=== PATIENT | female | born 1985 | race African-American/Black ===

== ENCOUNTER 2022-06-07 01:15 | Inpatient (IN) | payer OTHER ==
[2022-06-07] MEDS: DEXTROSE 5%-LACTATED RINGERS 1,000 ML IV SCH ×2 (02:00→09:06)
[2022-06-07] MEDS ORDERED: AMPICILLIN SODIUM 2 GM VIAL ONE (02:13)
[2022-06-07] MEDS ORDERED: AMPICILLIN - 2 GM in SODIUM CHLORIDE 100 ML IVPB ONE (02:19)
[2022-06-07 02:32] LABS: INR 1.15 (0.83-1.09); PROTHROMBIN TIME (PATIENT) 13.2 SEC (9.7-13.0)
[2022-06-07 02:35] LABS: ACTIVATED PTT 31.9 SECONDS (25.2-36.5)
[2022-06-07 02:39] LABS: BASO % 0.2 % (0-2.0); EOS % 0.8 % (0-4.5); HEMATOCRIT 31.6 % (32.4-45.2); HEMOGLOBIN 10.2 GM/dL (10.7-15.3); LYMPH % 20.5 % (8-40); MCH 22.8 pg (25.7-33.7); MCHC 32.2 g/dl (32.0-36.0); MEAN CELL VOLUME 70.9 fl (80-96); MEAN PLT VOLUME 7.3 fl (7.5-11.1); MONO % 9.3 % (3.8-10.2); NEUT % 69.2 % (42.8-82.8); PLATELET COUNT 397 10^3/uL (134-434); RBC 4.46 M/mm3 (3.60-5.2); RDW 15.4 % (11.6-15.6); WHITE BLOOD COUNT 7.5 K/mm3 (4.0-10.0)
[2022-06-07 02:45] LABS: CALCIUM 9.3 mg/dL (8.5-10.1)
[2022-06-07 02:46] LABS: BLOOD UREA NITROGEN 6.6 mg/dL (7-18)
[2022-06-07 02:49] LABS: CREATININE 0.5 mg/dL (0.55-1.3)
[2022-06-07 02:58] VITALS: BMI 37.8
[2022-06-07 03:13] LABS: SYPHILIS W/ RPR CONF NON-REACTIVE (NONREACTIVE)
[2022-06-07 03:42] LABS: HIV INTERPRETATION NEGATIVE (NEGATIVE)
[2022-06-07] MEDS ORDERED: BUTORPHANOL TARTRATE 1 MG/ML VIAL IVPB ONE (05:20)
[2022-06-07] MEDS ORDERED: PROMETHAZINE HCL 25 MG/1 ML VIAL IVPUSH ONE (05:20)
[2022-06-07] MEDS ORDERED: AMPICILLIN SODIUM 1 GM VIAL ONE ×3 (06:02→13:11)
[2022-06-07] MEDS: AMPICILLIN - 1 GM in SODIUM CHLORIDE 100 ML IVPB SCH ×3 (06:05→13:52)
[2022-06-07] MEDS ORDERED: DINOPROSTONE 10 MG VAGINAL SUPPOSITORY VG ONE (07:30)
[2022-06-07] MEDS ORDERED: SODIUM CHLORIDE 100 ML IVPB ONE ×2 (09:08→13:11)
[2022-06-07] MEDS ORDERED: OXYTOCIN 30 UNITS in 0.9% NS 30 UNIT/500 ML INFUS.BAG IVPB SCH (09:30)
[2022-06-07] MEDS ORDERED: ELECTROLYTE-148 SOLN 1,000 ML IV SCH ×3 (16:00→18:00)
[2022-06-07] MEDS ORDERED: CITRIC ACID/SODIUM CITRATE 30 ML UNIT-DOSE CUP PO ONE ×2 (16:25→16:30)
[2022-06-07] MEDS ORDERED: ELECTROLYTE-148 SOLN 500 ML IV ONE (16:25)
[2022-06-07] MEDS ORDERED: SODIUM CHLORIDE 0.9% P/F 10 ML VIAL IJ ONE (17:03)
[2022-06-07] MEDS ORDERED: ePHEDrine SULFATE 50 MG/1 ML AMPULE ONE (17:03)
[2022-06-07] MEDS ORDERED: OXYTOCIN 20 UNITS in 0.9% NS 20 UNIT/1,000 ML INFUS.BAG IV ONE ×2 (17:03→18:14)
[2022-06-07] MEDS ORDERED: morphine SULFATE/PF 1 MG/2 ML (2cc Syringe - QUVA) ONE (17:03)
[2022-06-07] MEDS ORDERED: ONDANSETRON 4 MG/2 ML VIAL ONE (17:03)
[2022-06-07] MEDS ORDERED: PHENYLEPHRINE HCL 10 MG/1 ML SINGLE DOSE VIAL ONE (17:03)
[2022-06-07] MEDS ORDERED: ONDANSETRON 4 MG/2 ML VIAL IVPUSH PRN (17:34)
[2022-06-07] MEDS ORDERED: morphine SULFATE/PF 1 MG/2 ML (2cc Syringe - QUVA) IT ONE (17:34)
[2022-06-07] MEDS: OXYTOCIN 20 UNITS in 0.9% NS 20 UNIT/1,000 ML INFUS.BAG IV SCH (18:10)
[2022-06-07] MEDS ORDERED: OXYTOCIN 30 UNITS in 0.9% NS 30 UNIT/500 ML INFUS.BAG IVPB ONE (18:14)
[2022-06-07] MEDS ORDERED: IBUPROFEN 800 MG/8 ML IJ IVPB PRN (18:23)
[2022-06-07] MEDS ORDERED: BENZOCAINE 20% 57 GM BOTTLE TP PRN (18:23)
[2022-06-07] MEDS ORDERED: METHYLERGONOVINE MALEATE 0.2 MG/1 ML AMP IM PRN (18:23)
[2022-06-07] MEDS ORDERED: WITCH HAZEL 50% (TUCKS) 40 PAD/JAR PAD TP PRN (18:23)
[2022-06-07] MEDS ORDERED: SENNOSIDES/DOCUSATE COMBO (SENNA PLUS) TABLET (UD) PO PRN (18:23)
[2022-06-07] MEDS ORDERED: ACETAMINOPHEN 325 MG TABLET (FP) PO PRN (18:23)
[2022-06-07] MEDS ORDERED: IBUPROFEN 800 MG/8 ML IJ IVPB ONE (19:33)
[2022-06-07] MEDS: ACETAMINOPHEN 1000 MG/100 ML BAG IVPB SCH ×2 (20:30→23:48)
[2022-06-07] MEDS ORDERED: propRANOLol HCL 10 MG TABLET PO ONE (21:00)
[2022-06-08] MEDS ORDERED: oxyCODONE HCL 5 MG TABLET PO PRN ×2 (06:23)
[2022-06-08 08:37] LABS: BASO % 0.3 % (0-2.0); EOS % 0.4 % (0-4.5); HEMATOCRIT 31.1 % (32.4-45.2); HEMOGLOBIN 10.4 GM/dL (10.7-15.3); LYMPH % 9.5 % (8-40); MCH 23.8 pg (25.7-33.7); MCHC 33.3 g/dl (32.0-36.0); MEAN CELL VOLUME 71.3 fl (80-96); MEAN PLT VOLUME 6.9 fl (7.5-11.1); MONO % 6.5 % (3.8-10.2); NEUT % 83.3 % (42.8-82.8); PLATELET COUNT 344 10^3/uL (134-434); RBC 4.36 M/mm3 (3.60-5.2); RDW 15.5 % (11.6-15.6); WHITE BLOOD COUNT 10.1 K/mm3 (4.0-10.0)
[2022-06-08] MEDS: FERROUS SO4 325 MG TABLET (FP) PO SCH ×2 (10:48→17:31)
[2022-06-08] MEDS: IBUPROFEN 600 MG TABLET (FP) PO PRN ×3 (10:49→21:13)
[2022-06-08] MEDS: PRENATAL VITAMINS W/ FOLIC ACID TABLET (FP) PO SCH (10:49)
[2022-06-08] MEDS ORDERED: BISACODYL 10 MG SUPP.RECT RC PRN (18:23)
[2022-06-08] MEDS ORDERED: propRANOLol HCL 10 MG TABLET PO ONE (21:00)
[2022-06-08] MEDS: SIMETHICONE 80 MG TAB.CHEW (FP) PO PRN (21:14)
[2022-06-08] MEDS: OXYTOCIN 20 UNITS in 0.9% NS 20 UNIT/1,000 ML INFUS.BAG IV SCH (22:06)
[2022-06-09] MEDS: SIMETHICONE 80 MG TAB.CHEW (FP) PO PRN ×3 (05:34→19:14)
[2022-06-09] MEDS: IBUPROFEN 600 MG TABLET (FP) PO PRN ×3 (05:34→19:14)
[2022-06-09] MEDS: FERROUS SO4 325 MG TABLET (FP) PO SCH ×2 (08:43→17:28)
[2022-06-09] MEDS: PRENATAL VITAMINS W/ FOLIC ACID TABLET (FP) PO SCH (11:02)
[2022-06-09] MEDS ORDERED: FLU VACC QS2022-23(6MOS UP)/PF 60 MCG/0.5 ML SYRINGE IM ONE (12:00)
[2022-06-10] MEDS: IBUPROFEN 600 MG TABLET (FP) PO PRN (08:04)
[2022-06-10] MEDS: SIMETHICONE 80 MG TAB.CHEW (FP) PO PRN (08:04)
[2022-06-10] MEDS: FERROUS SO4 325 MG TABLET (FP) PO SCH (08:04)
[2022-06-10 08:59] VITALS: BP 132/86; PULSE 118; RESP 20; TEMP 99.1
[2022-06-10] MEDS: PRENATAL VITAMINS W/ FOLIC ACID TABLET (FP) PO SCH (09:39)
== END 2022-06-10 14:00 | disposition home or self-care (01) | DRG 540 ==
LOC: JLDR 01:15 → J3W 20:29
PROVIDERS: ADMIT Obstetrics & Gynecology; ATTEND Obstetrics & Gynecology
PROC: 10D00Z1 Extraction of Products of Conception, Low, Open Approach (ICD-10-PCS; principal; 2022-06-07)
DX: O36.8330 Maternal care for abnormalities of the fetal heart rate or rhythm, third trimester, not applicable or unspecified (principal); O32.2XX0 Maternal care for transverse and oblique lie, not applicable or unspecified; O69.81X0 Labor and delivery complicated by cord around neck, without compression, not applicable or unspecified; Z3A.37 37 weeks gestation of pregnancy; Z37.0 Single live birth
CPT/HCPCS: 36415; 80048; 85025; 85610; 85730; 86780; 86850; 86900; 86901; 87389; 88307-TC; C9803-CS; G0008; Q2036; U0003; U0005